=== PATIENT | male | born 1960 | race Caucasian/White ===

== ENCOUNTER 2019-04-19 06:36 | Day surgery (SDC) | payer BC ==
[~2019-04-19 06:36] MED LIST: Lactated Ringers 1,000 ML IV SCH; ceFAZolin 2 GM in Premix Bag 1 BAG IV ONE
== END 2019-04-19 08:28 ==
LOC: MW.SDS 06:36
PROVIDERS: ATTEND Podiatrist Foot & Ankle Surgery
DX: M89.372 Hypertrophy of bone, left ankle and foot (principal); Z88.8 Allergy status to other drugs, medicaments and biological substances; Z53.20 Procedure and treatment not carried out because of patient's decision for unspecified reasons